=== PATIENT | male | born 1930 | race Caucasian/White ===

== ENCOUNTER 2018-07-14 16:30 | Emergency (ER) | payer MEDICARE, OTHER ==
--- NOTE | 2018-07-14 20:33 | ED ---
Lower Extremity - HPI Summary HPI Summary: Patient complains of swelling to great toe of right foot. Patient sent by a PT for rule out of DVT. Patient denies pain, but has history of neuropathy. Patient also complains of fall 2 weeks ago with subsequent right foot pain. Patient seeing PT to improve walking ability. Patient ambulates with a walker at baseline. Denies any other pain, injury or symptoms. Denies history of gout. - History of Current Complaint Chief Complaint: EDExtremityLower Stated Complaint: RIGHT FOOT INJURY Time Seen by Provider: 07/14/18 18:38 Hx Obtained From: Patient Mechanism Of Injury: Fall From A Standing Position Onset of Pain: Immediate Severity Currently: None Pain Intensity: 0 Pain Scale Used: 0-10 Numeric Associated Signs And Symptoms: Positive: Swelling - Allergies/Home Medications Allergies/Adverse Reactions: Allergies Allergy/AdvReac Type Severity Reaction Status Date / Time unknown pain medication Allergy Hallucinati Uncoded 07/14/18 17:18 ons PMH/Surg Hx/FS Hx/Imm Hx Cardiovascular History: Reports: Other Cardiovascular Problems/Disorders - 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 History: Reports: Other Problems/Disorders - BPH Musculoskeletal History: Reports: Hx Back Problems, Other Musculoskeletal History - fractures of left hip and right femur Sensory History: Denies: Hx Eye Prosthesis Opthamlomology History: Denies: Hx Legally Blind EENT History: Denies: Hx Deafness Neurological History: Reports: Other Neuro Impairments/Disorders - PAIN CLINIC PT Psychiatric History: Denies: Hx Autism - Surgical History Surgery Procedure, Year, and Place: ADRENAL GLAND TUMOR ,TRIPLE BYPASS , HERNIA inguinal left,GB, right femur rodding Infectious Disease History: No Infectious Disease History: Denies: Traveled Outside the [place] in Last 30 Days - Social History Alcohol Use: None Substance Use Type: Reports: None Smoking Status (MU): Never Smoked Tobacco Review of Systems Constitutional: Negative Eyes: Negative ENT: Negative Cardiovascular: Negative Respiratory: Negative Gastrointestinal: Negative Genitourinary: Negative Musculoskeletal: Other Skin: Negative Neurological: Negative Psychological: Normal All Other Systems Reviewed And Are Negative: Yes Physical Exam - Summary Physical Exam Summary: Swelling to the great right toe. No erythema, ecchymosis, deformity, extra warmth noted to right foot or toes. No pain with palpation. Full range of motion of toes and ankle. PMS intact distally. Triage Information Reviewed: Yes Vital Signs On Initial Exam: Initial Vitals Temp Pulse Resp BP Pulse Ox 98 F 59 17 155/73 97 07/14/18 17:14 07/14/18 17:14 07/14/18 17:14 07/14/18 17:14 07/14/18 17:14 Vital Signs Reviewed: Yes Appearance: Positive: Well-Appearing Skin: Positive: Warm Head/Face: Positive: Normal Head/Face Inspection Eyes: Positive: Normal Neck: Positive: Supple Respiratory/Lung Sounds: Positive: Clear to Auscultation Cardiovascular: Positive: Normal Abdomen Description: Positive: Nontender Musculoskeletal: Positive: Normal Neurological: Positive: Normal Psychiatric: Positive: Normal AVPU Assessment: Alert - Johanny Coma Scale Best Eye Response: 4 - Spontaneous Best Motor Response: 6 - Obeys Commands Best Verbal Response: 5 - Oriented Coma Scale Total: 15 Diagnostics - Vital Signs Vital Signs Temp Pulse Resp BP Pulse Ox 07/14/18 17:14 98 F 59 17 155/73 97 - Laboratory Lab Statement: Any lab studies that have been ordered have been reviewed, and results considered in the medical decision making process. Lower Extremity Course/Dx - Course Course Of Treatment: Patient complains of swelling to great toe of right foot. Patient sent by a PT for rule out of DVT. Patient denies pain, but has history of neuropathy. Patient also complains of fall 2 weeks ago with subsequent right foot pain. Patient seeing PT to improve walking ability. Patient ambulates with a walker at baseline. Denies any other pain, injury or symptoms. Denies history of gout. Physical exam:Swelling to the great right toe. No erythema, ecchymosis, deformity, extra warmth noted to right foot or toes. No pain with palpation. Full range of motion of toes and ankle. PMS intact distally. Vital signs within normal limits. X-ray positive for fracture of distal right great toe. Swelling likely due to unnoticed reinjury due to patient's neuropathy. - Diagnoses Provider Diagnoses: Toe fracture Discharge - Sign-Out/Discharge Documenting (check all that apply): Patient Departure Patient Received Moderate/Deep Sedation with Procedure: No - Discharge Plan Condition: Stable Disposition: HOME Patient Education Materials: Toe Fracture (ED) Referrals: Yaron Cervantes MD [Primary Care Provider] - Additional Instructions: Be careful with total of right foot due to fracture. Follow-up with primary care. Return to the ED for any new or worsening symptoms. - Billing Disposition and Condition Condition: STABLE Disposition: Home
[2018-07-14 20:50] VITALS: BP 158/70
== END 2018-07-14 20:49 | disposition home or self-care (01) ==
LOC: ED 16:30
DX: S92.424A Nondisplaced fracture of distal phalanx of right great toe, initial encounter for closed fracture (principal); W19.XXXA Unspecified fall, initial encounter; Y92.9 Unspecified place or not applicable; M71.21 Synovial cyst of popliteal space [Baker], right knee; I25.10 Atherosclerotic heart disease of native coronary artery without angina pectoris; Z95.1 Presence of aortocoronary bypass graft
CPT/HCPCS: 99282